=== PATIENT | male | born 2000 | race Caucasian/White ===

== ENCOUNTER 2023-08-07 04:34 | Observation (INO) | payer OTHER ==
[2023-08-07 04:41] VITALS: BMI 33.6
[2023-08-07] MEDS: ACETAMINOPHEN 1000 MG/100 ML BAG IVPB ONE (05:15)
[2023-08-07 05:26] LABS: INR 1.02 (0.83-1.09); PROTHROMBIN TIME (PATIENT) 11.5 SEC (9.7-13.0)
[2023-08-07 05:29] LABS: ACTIVATED PTT 25.3 SECONDS (25.2-36.5)
[2023-08-07 05:36] LABS: POTASSIUM 3.7 mmol/L (3.5-5.1)
[2023-08-07 05:38] LABS: CALCIUM 9.8 mg/dL (8.5-10.1)
[2023-08-07 05:39] LABS: ALBUMIN 4.9 g/dl (3.4-5.0); BLOOD UREA NITROGEN 10.6 mg/dL (7-18)
[2023-08-07 05:42] LABS: CREATININE 1.4 mg/dL (0.55-1.3)
[2023-08-07 05:43] LABS: BILIRUBIN,TOTAL 0.6 mg/dL (0.2-1)
[2023-08-07 05:44] LABS: HEMATOCRIT 48.4 % (35.4-49); HEMOGLOBIN 16.6 GM/dL (11.7-16.9); MCH 29.3 pg (25.7-33.7); MCHC 34.3 g/dl (32.0-35.9); MEAN CELL VOLUME 85.6 fl (80-96); MEAN PLT VOLUME 7.6 fl (7.5-11.1); PLATELET COUNT 280 10^3/uL (134-434); RBC 5.66 M/mm3 (4.00-5.60); RDW 14.1 % (11.9-15.9); TOT PROT 9.3 g/dl (6.4-8.2); WHITE BLOOD COUNT 13.3 K/mm3 (4.0-10.0)
[2023-08-07] MEDS: ONDANSETRON 4 MG/2 ML VIAL IVPUSH ONE (05:51)
[2023-08-07] MEDS ORDERED: LIDOCAINE HCL 1%, 10 MG/ML (20ML VIAL) ONE (06:04)
[2023-08-07] MEDS ORDERED: DIPHTH,PERTUSS(ACELL),TET 0.5 ML DISP.SYRIN IM ONE ×2 (06:30→06:31)
[2023-08-07] MEDS: DIPHTH,PERTUSS(ACELL),TET 0.5 ML DISP.SYRIN IM ONE (06:34)
[2023-08-07] MEDS: SODIUM CHLORIDE 1,000 ML IV STA (06:43)
[2023-08-07] MEDS: LIDOCAINE HCL 1%, 10 MG/ML (50 mL VIAL) SQ ONE (06:57)
[2023-08-07 07:10] LABS: ANISOCYTOSIS 3+; MACROCYTOSIS 0; OVALOCYTE 1+
[2023-08-07] MEDS ORDERED: THIAMINE HCL 200 MG/2 ML VIAL ONE (07:41)
[2023-08-07] MEDS ORDERED: FOLIC ACID 1 MG TABLET (FP) ONE (07:41)
[2023-08-07] MEDS ORDERED: MULTIVITAMINS (DAILY MVI) TABLET (FP) ONE (07:41)
[2023-08-07] MEDS: DEXTROSE 5%-NORMAL SALINE 1,000 ML IV SCH (08:07)
[2023-08-07] MEDS: MULTIVITAMINS (DAILY MVI) TABLET (FP) PO ONE (08:07)
[2023-08-07] MEDS: THIAMINE HCL 200 MG/2 ML VIAL IVPB ONE (08:07)
[2023-08-07] MEDS: FOLIC ACID 1 MG TABLET (FP) PO ONE (08:07)
[2023-08-07 08:20] LABS: VENOUS BASE EXCESS -5.1 mmol/L (-2-2); VENOUS O2 SATURATION 94.3 % (70-80); VENOUS PCO2 33.1 mmHg (38-52); VENOUS PH 7.377 (7.310-7.410)
[2023-08-07 09:14] LABS: CHLORIDE 108 mmol/L (98-107); SODIUM 140 mmol/L (136-145)
[2023-08-07 09:15] LABS: CALCIUM 8.8 mg/dL (8.5-10.1)
[2023-08-07 09:16] LABS: ANION GAP 12 mmol/L (4-13); CO2 20 mmol/L (21-32); GLUCOSE,RANDOM 100 mg/dL (74-106); MAGNESIUM 2.8 mg/dL (1.8-2.4)
[2023-08-07 09:19] LABS: CREATININE 1.1 mg/dL (0.55-1.3)
[2023-08-07 14:31] VITALS: BP 146/87; PULSE 60; RESP 18; TEMP 98.7
== END 2023-08-07 14:15 | disposition home or self-care (01) ==
LOC: JER 04:34 → JERBED 06:32
PROVIDERS: ADMIT Internal Medicine; ATTEND Internal Medicine
PROC: 3E033GC Introduction of Other Therapeutic Substance into Peripheral Vein, Percutaneous Approach (ICD-10-PCS; principal; 2023-08-07)
PROC: 3E033NZ Introduction of Analgesics, Hypnotics, Sedatives into Peripheral Vein, Percutaneous Approach (ICD-10-PCS; 2023-08-07)
PROC: 3E0337Z Introduction of Electrolytic and Water Balance Substance into Peripheral Vein, Percutaneous Approach (ICD-10-PCS; 2023-08-07)
PROC: 2W3UX1Z Immobilization of Right Toe using Splint (ICD-10-PCS; 2023-08-07)
DX: F10.920 Alcohol use, unspecified with intoxication, uncomplicated (principal); S62.304A Unspecified fracture of fourth metacarpal bone, right hand, initial encounter for closed fracture; S00.83XA Contusion of other part of head, initial encounter; Y04.2XXA Assault by strike against or bumped into by another person, initial encounter; Y93.89 Activity, other specified; Y92.410 Unspecified street and highway as the place of occurrence of the external cause; M79.641 Pain in right hand; E87.29 Other acidosis
CPT/HCPCS: 29515; 36415; 70450-TC; 70486-TC; 71045-TC-FY; 72125-TC; 73130-TC-RT-FY; 80048; 80053; 80307; 82803; 83735; 83930; 85025; 85610; 85730; 86850; 86900; 86901; 90715; 93005; 93010; 96361; 96365; 96372; 96375; 99285-25; G0378; J0131

== ENCOUNTER 2023-08-23 14:26 | Emergency (ER) | payer OTHER ==
[2023-08-23 14:43] VITALS: BP 119/71; PULSE 93; RESP 18; TEMP 98; BMI 33.6
== END 2023-08-23 15:25 | disposition home or self-care (01) ==
LOC: JERFT 14:26
DX: Z48.02 Encounter for removal of sutures (principal)
CPT/HCPCS: 99281-25